=== PATIENT | male | born 1980 | race American Indian/Alaskan Native ===

== ENCOUNTER 2022-05-22 13:38 | Emergency (ER) | payer OTHER ==
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
[2022-05-22 17:43] VITALS: BP 146/94
== END 2022-05-22 17:52 | disposition home or self-care (01) ==
LOC: ED 13:38
DX: S13.8XXA Sprain of joints and ligaments of other parts of neck, initial encounter (principal); Z79.899 Other long term (current) drug therapy; V87.7XXA Person injured in collision between other specified motor vehicles (traffic), initial encounter; Y93.89 Activity, other specified; Y92.488 Other paved roadways as the place of occurrence of the external cause; Y99.8 Other external cause status
CPT/HCPCS: 72040; 99283